=== PATIENT | male | born 1960 | race Two or more races ===

== ENCOUNTER 2018-08-29 16:39 | Emergency (ER) | payer OTHER ==
--- NOTE | 2018-08-29 16:50 | PDOC ---
Rapid Medical Evaluation Time Seen by Provider: 08/29/18 16:48 Medical Evaluation: Allergies Allergy/AdvReac Type Severity Reaction Status Date / Time gabapentin AdvReac Verified 05/18/17 13:37 08/29/18 16:48 I performed a brief in-person evaluation of this patient. Chief complaint is: Pain in back of the head radiating down neck and to the left arm. Pertinent physical exam findings include: No neck stiffness/meningismus. No focal weakness or numbness. Speech normal. I have ordered the following: None. Patient will proceed to the ED for further evaluation. Discharge Disposition - Diagnosis Headache Qualifiers: Headache type: unspecified Headache chronicity pattern: acute headache Intractability: not intractable Qualified Code(s): R51 - Headache - Referrals - Patient Instructions - Post Discharge Activity
[2018-08-29 16:52] VITALS: BP 148/85; PULSE 83; TEMP 97.6; BMI 29.2
[2018-08-29] MEDS ORDERED: KETOROLAC TROMETHAMINE 60 MG/2 ML VIAL IM ONE (17:18)
[2018-08-29] MEDS ORDERED: KETOROLAC TROMETHAMINE 60 MG/2 ML VIAL ONE (17:20)
--- NOTE | 2018-08-29 17:59 | PDOC ---
History of Present Illness - General Chief Complaint: Head/Neck problem Stated Complaint: HEAD/NECK PROBLEM Time Seen by Provider: 08/29/18 16:48 - History of Present Illness Initial Comments: 08/29/18 17:56 58-year-old male with a past medical history significant for asthma presents for evaluation of neck pain and left arm radicular symptoms. Past History - Past Medical History Allergies/Adverse Reactions: Allergies Allergy/AdvReac Type Severity Reaction Status Date / Time gabapentin AdvReac Verified 05/18/17 13:37 Home Medications: Ambulatory Orders Cyclobenzaprine HCl [Flexeril 10 mg] 10 mg PO HS PRN #10 tablet 08/29/18 Methylprednisolone [Medrol Dose Rene] 4 mg PO ASDIR #21 tablet 08/29/18 Asthma: Yes Cancer: No Cardiac Disorders: No COPD: No CHF: No Dementia: No Diabetes: No Disorders: No HTN: Yes (borderline - no meds) Hypercholesterolemia: No Liver Disease: No Psychiatric Problems: Yes (depression) Seizures: No Thyroid Disease: No Lung CA: Yes ([id number]) Other medical history: vertigo - Surgical History Abdominal Surgery: No Appendectomy: No Cardiac Surgery: No Cholecystectomy: No Lung Surgery: No Neurologic Surgery: No Orthopedic Surgery: No - Immunization History Immunization Up to Date: No - Suicide/Smoking/Psychosocial Hx Smoking History: Never smoked Have you smoked in the past 12 months: No Information on smoking cessation initiated: No Hx Alcohol Use: No Drug/Substance Use Hx: No Substance Use Type: Cocaine Hx Substance Use Treatment: No Review of Systems - Review of Systems Musculoskeletal: Yes: Neck Pain *Physical Exam - Vital Signs Last Vital Signs Temp Pulse Resp BP Pulse Ox 97.6 F 83 18 148/85 97 08/29/18 16:49 08/29/18 16:49 08/29/18 16:49 08/29/18 16:49 08/29/18 16:49 - Physical Exam Comments: 08/29/18 17:57 Cervical spine skin color and temperature are normal range of motion is slightly limited. There is no Tenderness. Moderate paracervical musculature spasm and tenderness. 5 out of 5 strength in bilateral upper extremities. Positive Spurling maneuver on the right negative on the left. No gross sensorimotor deficits is neurovascularly intact. Moderate Sedation - Procedure Monitoring Vital Signs: Procedure Monitoring Vital Signs Temperature 97.6 F 08/29/18 16:49 Pulse Rate 83 08/29/18 16:49 Respiratory Rate 18 08/29/18 16:49 Blood Pressure 148/85 08/29/18 16:49 O2 Sat by Pulse Oximetry (%) 97 08/29/18 16:49 ED Treatment Course - Medications Given in the ED: ED Medications Discontinued Medications Generic Name Dose Route Start Last Admin Trade Name Freq PRN Reason Stop Dose Admin Ketorolac Tromethamine 60 mg 08/29/18 17:18 08/29/18 17:23 Toradol Injection - IM 08/29/18 17:19 60 mg ONCE ONE Administration *DC/Admit/Observation/Transfer Diagnosis at time of Disposition: Cervical radiculopathy Diagnosis at time of Disposition: (Ruled Out): Headache - Discharge Dispostion Disposition: HOME Condition at time of disposition: Stable Decision to Admit order: No - Prescriptions Prescriptions: Cyclobenzaprine HCl [Flexeril 10 mg] 10 mg PO HS PRN #10 tablet PRN Reason: Muscle Spasms Methylprednisolone [Medrol Dose Rene] 4 mg PO ASDIR #21 tablet - Referrals Referrals: Kenny Morris MD [Staff Physician] - - Patient Instructions Printed Discharge Instructions: DI for Cervical Radiculopathy Additional Instructions: Return to the emergency room should symptoms worsen or go unresolved. Please take the Medrol Dosepak and muscle relaxers as we discussed and as directed. Follow-up with spine surgery in 2-3 days for further evaluation and treatment options. Please remember if you need additional medication is only sensitive to take Tylenol. Do not take any anti-inflammatories such as Advil Motrin Aleve or ibuprofen. - Post Discharge Activity
== END 2018-08-29 18:01 | disposition home or self-care (01) ==
LOC: JERFT 16:39
PROC: 3E0233Z Introduction of Anti-inflammatory into Muscle, Percutaneous Approach (ICD-10-PCS; principal; 2018-08-29)
DX: M54.12 Radiculopathy, cervical region (principal); R51 Headache; J45.909 Unspecified asthma, uncomplicated; I10 Essential (primary) hypertension; F32.9 Major depressive disorder, single episode, unspecified
CPT/HCPCS: 96372; 99281-25